=== PATIENT | female | born 2000 | race Caucasian/White ===

== ENCOUNTER 2019-11-09 15:03 | Inpatient (IN) | payer OTHER ==
[2019-11-10] MEDS ORDERED: RINGERS SOLUTION,LACTATED 1,000 ML IV ONE (20:06)
[2019-11-10] MEDS ORDERED: RINGERS SOLUTION,LACTATED 1,000 ML IV PRN (20:06)
[2019-11-10] MEDS ORDERED: DINOPROSTONE 10 MG VAGINAL INSERT.SR ONE (21:04)
--- NOTE | 2019-11-10 21:04 | Admission Physical ---
Datetime Report Generated by CPN: 11/10/2019 21:03 CURRENT ADMISSION Chief Complaint: Scheduled Induction of Labor Indication for Induction: Postterm Admit Impression : Term, Intrauterine ; No Active Labor; Intact Membranes; Induction of Labor Admit Plan: Admit to Unit; Initiate Labor Induction Protocol ALLERGIES Medication Allergies: Yes Medication Allergies: morphine/Anaphylaxis (11/10/2019); codeine/Anaphylaxis (11/10/2019) Latex: No Latex Allergies OBSTETRICAL HISTORY EDC: 11/01/2019 00:00 : 1 Para: 0 Term: 0 : 0 SAB: 0 IAB: 0 Ectopic: 0 Livin Cesareans: 0 VBACs: 0 Multiple Births: 0 Gestational Diabetes: No Rh Sensitization: No Incompetent Cervix: No VITA: No Infertility: No ART Treatment: No Uterine Anomaly: No IUGR: No Hx Previous C/S: No Macrosomia: No Hx Loss/Stillborn: No PIH: No Hx : No Placenta Previa/Abruption: No Depression/PP Depression: No PTL/PROM: No Post Hemorrhage: No SEE RECORDS Cigarettes: Current Some Day Smoker. [id number] MEDICAL HISTORY Diabetes: No Blood Transfusion: No Pulmonary Disease (Asthma, TB): No Breast Disease: No Hypertension: No Manager Relocation Surgery: No Heart Disease: No Hosp/Surgery: Yes Autoimmune Disorder: No Anesthetic Complications: No Kidney Disease: No Abnormal Pap Smear: No Neuro/Epilepsy: No Psychiatric Disorders: No Other Medical Diseases: No Hepatitis/Liver Disease: No Significant Family History: No Varicosities/Phlebitis: No Trauma/Violence : No Thyroid Dysfunction: No Medical History Comments: Ovarian Teratoma at age 3 INFECTIOUS HISTORY Gonorrhea: No Genital Herpes: No Chlamydia: No Tuberculosis: No Syphilis: No Hepatitis: No HIV/AIDS Exposure: No Rash or Viral Illness: No HPV: No Infectious History Comments: Oral HSV, 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 PHYSICAL EXAM General: Normal HEENT: Normal Neurologic: Normal Thyroid: Deferred Heart: Normal Lungs: Normal Breast: Deferred Back: Normal Abdomen: Normal Genitourinary Exam: Normal Extremities: Normal DTRs: Normal Pelvic Type: Adequate Vital Signs: Reviewed VAGINAL EXAM Dilatation: 2 Effacement: 80 Station: -2 Contraction Comments: irreg MEMBRANES Membranes: Intact FETUS A EGA: 41.2 Monitoring: External US FHR- Baseline: 145 Variability: Moderate 6-25bpm Accelerations: 15X15 Decelerations: None FHR Category: Category I Presentation: Vertex Admit Comment: 19yo at 41+2ega presents for scheduled IOL. SAVANAH / by LMP and c/w 1st trimester US. 56# weight gain in . 1hr GTT passed. H/o ovarian teratoma at age 3yo. 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 No oral prodrome or lesions currently. Pt denies vaginal prodrome or lesions. SSE negative for lesions. TIters done for Nursery. GBS positive - PCN for GBS prophy. EFW 9#4oz on 11/08. Admit and IOL with cervidil. Anticipate . INFORMED CONSENT Informed Consent Obtained: Vaginal Delivery; Induction of Labor; Risks, Benefits and Alternatives Discussed Signature: with User ID: [email or web address]
[2019-11-10 21:06] LABS: ABSOLUTE LYMPHOCYTES (AUTO) 1.7 10^3/uL (0.5-4.7); ABSOLUTE MONOCYTES (AUTO) 0.5 10^3/uL (0.1-1.4); ABSOLUTE NEUT (AUTO) 7.8 10^3/uL (1.7-8.2); BASOPHILS % (AUTO) 0.3 % (0-2); EOSINOPHILS % (AUTO) 0.1 % (0-6); HEMATOCRIT 35.7 % (36.0-47.0); HEMOGLOBIN 12.3 g/dL (12.0-15.5); LYMPHOCYTES % (AUTO) 16.9 % (13-45); MEAN CORPUSCULAR HEMOGLOBIN 31.9 pg (27.0-33.4); MEAN CORPUSCULAR HGB CONC 34.5 g/dL (32.0-36.0); MEAN CORPUSCULAR VOLUME 93 fl (80-97); MONOCYTES % (AUTO) 4.9 % (3-13); PLATELET COUNT 114 10^3/uL (150-450); RED BLOOD COUNT 3.86 10^6/uL (3.72-5.28); RED CELL DISTRIBUTION WIDTH 13.9 % (11.5-14.0); SEGMENTED NEUTROPHILS % (AUTO) 77.8 % (42-78); TOTAL CELLS COUNTED % (AUTO) 100 %; WHITE BLOOD COUNT 10.1 10^3/uL (4.0-10.5)
[2019-11-10 21:12] LABS: APPEARANCE,URINE CLEAR; BILIRUBIN,URINE NEGATIVE (NEGATIVE); COLOR,URINE YELLOW; GLUCOSE, URINE NEGATIVE (NEGATIVE); KETONES,URINE NEGATIVE (NEGATIVE); LEUKOCYTE ESTERASE,URINE NEGATIVE (NEGATIVE); NITRITE,URINE NEGATIVE (NEGATIVE); PROTEIN,URINE 30 mg/dL (NEGATIVE); URINE SPECIFIC GRAVITY 1.004; UROBILINOGEN,URINE NEGATIVE mg/dL (<2.0)
[2019-11-10 21:29] LABS: URINE AMPHETAMINES SCREEN NEGATIVE; URINE BARBITURATES SCREEN NEGATIVE; URINE BENZODIAZEPINES SCREEN NEGATIVE; URINE COCAINE SCREEN NEGATIVE; URINE MARIJUANA (THC) SCREEN NEGATIVE; URINE METHADONE SCREEN NEGATIVE; URINE PHENCYCLIDINE SCREEN NEGATIVE
[2019-11-10] MEDS ORDERED: PENICILLIN G POTASSIUM 5,000,000 UNIT in DEXTROSE 5%-WATER 100 ML IV ONE (22:00)
[2019-11-10 22:02] LABS: ALBUMIN 3.1 g/dL (3.5-5.0); ALKALINE PHOSPHATASE 119 U/L (38-126); ANION GAP 6 (5-19); ASPARTATE AMINO TRANSFERASE 36 U/L (14-36); BILIRUBIN,TOTAL 0.3 mg/dL (0.2-1.3); BLOOD UREA NITROGEN 10 mg/dL (7-20); CALCIUM 9.5 mg/dL (8.4-10.2); CARBON DIOXIDE 21 mmol/L (22-30); CHLORIDE 105 mmol/L (98-107); GLUCOSE 115 mg/dL (75-110); POTASSIUM 4.1 mmol/L (3.6-5.0); TOTAL PROTEIN 6.1 g/dL (6.3-8.2); URIC ACID 5.8 mg/dL (2.5-6.2)
[2019-11-10 22:22] LABS: UR PRO/CREAT RATIO RESULT 0.8 mg/mg (0.0-0.2); URINE CREATININE 46.2 mg/dL (16-327); URINE PROTEIN 38.8 mg/dL (<12)
[2019-11-11] MEDS: PENICILLIN G POTASSIUM 2,500,000 UNIT in DEXTROSE 5%-WATER 50 ML IV SCH ×4 (03:56→17:36)
[2019-11-11] MEDS ORDERED: OXYTOCIN/0.9 % SODIUM CHLORIDE 30 UNIT/500 ML RTUINJ IV PRN ×3 (07:43→17:24)
--- NOTE | 2019-11-11 08:08 | L&D Progress Notes ---
PROGRESS NOTES Datetime Report Generated by CPN: 11/11/2019 08:08 PROGRESS NOTE Impression: Normal Progression of Labor Procedures: Sterile Vag Exam Plan: Continue Present Management; Induction; Cervical Ripening Informed Consent Obtained: Vaginal Delivery; Induction of Labor; Risks, Benefits and Alternatives Discussed Vital Signs : Reviewed Comment: cervidil in since last night at 2100. 1/60/-3 then. Now cvx 3.5/75/-2. She declines AROM. Reviewed if no Active labor and SROM by noon that would need to break water. She is agreeable to this. Pitocin started. Plan reviewed. She verbalized understanding. VAGINAL EXAM Dilatation: 2 Effacement: 80 Station: -2 Contractions: irreg LAST VAGINAL EXAM-NURSING Nursing Exam Dilitation: 3.5 Nursing Exam Effacement: 75 Nursing Exam Station: -2 MEMBRANES Membranes: Intact FETUS A FHR - Baseline: 125 Monitoring: External US Variability: Moderate 6-25bpm Accelerations: 15X15 Decelerations: None FHR Category: Category I Presentation: Vertex SIGNATURE SIGNATURE: [id number] Signature: with User ID: [email or web address]
[2019-11-11] MEDS ORDERED: OXYTOCIN 10 UNIT/ML VIAL ONE (09:07)
[2019-11-11] MEDS ORDERED: OXYTOCIN/0.9 % SODIUM CHLORIDE 30 UNIT/500 ML RTUINJ ONE (09:08)
[2019-11-11] MEDS ORDERED: MISOPROSTOL 0.2 MG TABLET ONE (09:08)
[2019-11-11] MEDS ORDERED: LIDOCAINE 1% INJ-PF (10 MG/ML) 30 ML SDV ONE (09:08)
[2019-11-11] MEDS ORDERED: PENICILLIN G-K 5 MILLION UNIT VIAL ONE (09:09)
[2019-11-11] MEDS ORDERED: ONDANSETRON HCL INJ/PF 4 MG/2 ML SDV IV PRN (12:04)
--- NOTE | 2019-11-11 12:08 | L&D Progress Notes ---
PROGRESS NOTES Datetime Report Generated by CPN: 11/11/2019 12:08 PROGRESS NOTE Impression: Normal Progression of Labor; Reassuring Heart Rate Procedures: Artificial ROM; Sterile Vag Exam Plan: Continue Present Management; Induction; Antibiotic Therapy Plan Other: Pt may have an epidural Informed Consent Obtained: Vaginal Delivery; Induction of Labor; Risks, Benefits and Alternatives Discussed Vital Signs : Reviewed; Within Normal Limits Comment: IOL continues, PCN several doses infused for GBS+. Pitocin infusing. VE /-1, vtx. Pt considering an epidural. Position changes encouraged. Attending MD is Dr Coburn VAGINAL EXAM Dilatation: 2 Effacement: 80 Station: -2 Contractions: irreg LAST VAGINAL EXAM-NURSING Nursing Exam Dilitation: 5.0 Nursing Exam Effacement: 90 Nursing Exam Station: -1 MEMBRANES Membranes: Ruptured Amniotic Fluid Color: Clear FETUS A FHR - Baseline: 130 Monitoring: External US Variability: Moderate 6-25bpm Accelerations: 15X15 Decelerations: None FHR Category: Category I Presentation: Vertex SIGNATURE SIGNATURE: [id number] Assignment: Price Coburn MD Signature: with User ID: [email or web address] : with User ID: [email or web address]
[2019-11-11] MEDS ORDERED: EPHEDRINE SULFATE INJ 50 MG/1 ML AMPULE ONE (13:38)
[2019-11-11] MEDS ORDERED: FENTANYL/BUPIVACAINE/NS/PF 300 MCG/150 ML RTUINJ EPI ONE (13:38)
[2019-11-11] MEDS ORDERED: BUPIVACAINE HCL 0.25 % INJ/PF (2.5 MG/1 ML) 30 ML VIAL ONE (13:39)
--- NOTE | 2019-11-11 15:19 | L&D Progress Notes ---
PROGRESS NOTES Datetime Report Generated by CPN: 11/11/2019 15:19 PROGRESS NOTE Impression: Normal Progression of Labor Procedures: Sterile Vag Exam Plan: Continue Present Management; Anticipate Vaginal Delivery Plan Other: Pt may have an epidural Informed Consent Obtained: Vaginal Delivery; Induction of Labor; Risks, Benefits and Alternatives Discussed Vital Signs : Reviewed; Within Normal Limits Comment: Pt now has an epidural. Comfortable, VE per RN 8.5/90/0. Position changes encouraged. Will tx for GBS + until delivery VAGINAL EXAM Dilatation: 2 Effacement: 80 Station: -2 Contractions: irreg LAST VAGINAL EXAM-NURSING Nursing Exam Dilitation: 8.5 Nursing Exam Effacement: 90 Nursing Exam Station: 0 MEMBRANES Membranes: Ruptured Amniotic Fluid Color: Clear FETUS A FHR - Baseline: 130 Monitoring: External US Variability: Moderate 6-25bpm Accelerations: 15X15 Decelerations: None FHR Category: Category I Presentation: Vertex SIGNATURE SIGNATURE: [id number] Assignment: Price Coburn MD Signature: with User ID: [email or web address] : with User ID: [email or web address]
[2019-11-11] MEDS ORDERED: DIBUCAINE 1% OINTMENT 28 GM TP PRN (17:24)
[2019-11-11] MEDS ORDERED: NA PHOS,M-B/NA PHOS,DI-BA (ADULT) 133 ML ENEMA PR PRN (17:24)
[2019-11-11] MEDS ORDERED: PSEUDOEPHEDRINE HCL 30 MG TABLET PO PRN (17:24)
[2019-11-11] MEDS ORDERED: DIPH/PERTUSS(ACELL)/TETANUS VAC/PF 0.5 ML SYR (>=10YO) IM PRN (17:24)
[2019-11-11] MEDS ORDERED: MEASLES,MUMPS&RUBELLA VACC/PF 0.5 ML VIAL SUBCUT PRN (17:24)
[2019-11-11] MEDS ORDERED: MAGNESIUM HYDROXIDE SUSP 30 ML UDCUP PO PRN (17:24)
[2019-11-11] MEDS ORDERED: ACETAMINOPHEN 650 MG SUPP.RECT PR PRN (17:24)
[2019-11-11] MEDS ORDERED: DIPHENHYDRAMINE HCL 25 MG CAPSULE PO PRN (17:24)
[2019-11-11] MEDS ORDERED: ZOLPIDEM TARTRATE 5 MG TABLET PO PRN (17:24)
[2019-11-11] MEDS ORDERED: BENZOCAINE/MENTHOL AEROSOL SPRAY 56 ML TOP PRN (17:24)
[2019-11-11] MEDS ORDERED: PROMETHAZINE HCL 25 MG SUPP.RECT PR PRN (17:24)
[2019-11-11] MEDS ORDERED: GLYCERIN/WITCH HAZEL LEAF 1 EACH MED..WIPE TP PRN (17:24)
[2019-11-11] MEDS ORDERED: PROMETHAZINE HCL INJ 25 MG/1 ML VIAL IV PRN (17:24)
[2019-11-11] MEDS ORDERED: PROMETHAZINE HCL 25 MG TABLET PO PRN (17:24)
[2019-11-11] MEDS ORDERED: ACETAMINOPHEN WITH CODEINE #3 TABLET PO PRN (17:24)
[2019-11-11] MEDS ORDERED: ACYCLOVIR PO SCH (18:00)
--- NOTE | 2019-11-11 19:59 | Delivery Summary ---
Del Sum A-C Datetime Report Generated by CPN: 11/11/2019 19:59 DELIVERY PERSONNEL DELIVERY PERSONNEL: [id number] Delivery Doctor:: Price Coburn MD Labor and Delivery Nurse:: Payton Yadav RNreceivable executive Nurse:: SELAM Henderson Nursery Nurse:: Shannan Perry Nursery Nurse:: marilia Refueler/BROKERAGE BRANCH MANAGER: Gardenia Wadsworth CNA II Refueler/BROKERAGE BRANCH MANAGER: Karla Rock, WIRE WHEELER MATERNAL INFORMATION Delivery Anesthesia: Epidural Medications After Delivery: Pitocin 30 Units in 500ml NS/D5W Delivery QBL: 300 Maternal Complications: None LABOR SUMMARY EDC: 11/01/2019 00:00 No. Babies in Womb: 1 Attempted: No Labor Anesthesia: Epidural LABOR INFORMATION Reason for Induction: Post Dates Onset of Labor: 11/11/2019 12:00 Complete Dilatation: 11/11/2019 16:05 Cervical Ripening Agents: Cervidil Oxytocin: Induction Group B Beta Strep: Positive Antibiotics # of Doses: 4 Antibiotics Time of Last Dose: 1340 Name of Antibiotic Given: PCN Steroids Given: None Reason Steroids Not Administered: Not Applicable MEMBRANES Membranes Rupture Method: Artificial Rupture of Membranes: 11/11/2019 12:01 Length of Rupture (hr): 5.02 Amniotic Fluid Color: Clear Amniotic Fluid Amount: Small Amniotic Fluid Odor: Normal STAGES OF LABOR Stage 1 hr: 4 Stage 1 min: 5 Stage 2 hr: 0 Stage 2 min: 57 Stage 3 hr: 0 Stage 3 min: 6 Total Time in Labor hr: 5 Total Time in Labor min: 8 VAGINAL DELIVERY Episiotomy: None Laceration #1: Perineal; Vaginal Laceration Extension #1: Third Degree, IIIa (Less than 50 percent ext anal sphincter thickness torn) Laceration Repair: Yes Laceration Repair Note: sphincter repaired with 3 layers and the vaginal tear with 20 vicryl CSECTION DELIVERY Primary Indication: N/A Secondary Indication: N/A CSection Incidence: N/A Labor: N/A Elective: N/A CSection Incision: N/A BABY A INFORMATION Delivery Date/Time: 11/11/2019 17:02 Method of Delivery: Vaginal Nurse Controlled Delivery: No Born in Route : No : N/A Forceps: N/A Vacuum Extraction: N/A Shoulder Dystocia : No PRESENTATION/POSITION BABY A Presentation: Cephalic Cephalic Presentation: Vertex Vertex Position: Left Occipital Anterior Breech Presentation: N/A PLACENTA INFORMATION BABY A Placenta Delivery Time : 11/11/2019 17:08 Placenta Method of Delivery: Spontaneous Placenta Status: Delivered SCORES BABY A Heart Rate 1 min: >100 bpm Resp Effort 1 min: Good Cry Reflex Irritability 1 min: Cough or Sneeze or Pulls Away Muscle Tone 1 min: Active Motion Color 1 min: Body [place], Extremities Blue Resuscitation Effort 1 min: Tactile Stimulation SCORE 1 MIN: 9 Heart Rate 5 min: >100 bpm Resp Effort 5 min: Good Cry Reflex Irritability 5 min: Cough or Sneeze or Pulls Away Muscle Tone 5 min: Active Motion Color 5 min: Completely [place] Resuscitation Effort 5 min: Tactile Stimulation SCORE 5 MIN: 10 INFORMATION BABY A Gestational Age at Delivery: 41.3 Gestational Status: Late Term- 41- 41.6 Weeks Infant Outcome : Liveborn Infant Condition : Stable Sex: Male IDENTIFICATION BABY A Infant Verification Date/Time: 11/11/2019 17:26 ID Band Number: [id number] Mother's Name Verified: Yes RN Verifying Infant: RArnel Yadav, RN/ S. Hou, RN WEIGHT/LENGTH BABY A Infant Birthweight (gm): 4104 Infant Weight (lb): 9 Infant Weight (oz): 1 Length (in): 21.00 Length (cm): 53.34 CORD INFORMATION BABY A No. Cord Vessels: 3 Nuchal Cord : N/A Cord Blood Taken: Yes-For Eval (Mom's Blood Type - or O+) Infant Suction: None ASSESSMENT BABY A Complications: None Physical Findings at Delivery: Within Normal Limits Infant Respirations: Appears Normal Skin to Skin: Yes Overlock Sewing Machine Operator/ALS Called : No Care By: D. Bigge, RNC Transferred To: Remains with Mother BABY B INFORMATION : N/A SIGNATURES Signature: with User ID: [email or web address]
[2019-11-11] MEDS: IBUPROFEN 800 MG TABLET PO SCH (22:45)
[2019-11-12] MEDS: FERROUS SULFATE 325 MG TABLET PO SCH ×3 (06:08→17:22)
[2019-11-12] MEDS: DOCUSATE SODIUM 100 MG CAPSULE PO SCH ×3 (06:08→17:22)
[2019-11-12] MEDS: FAMOTIDINE 20 MG TABLET PO SCH ×3 (06:09→21:11)
[2019-11-12 07:47] LABS: HEMATOCRIT 27.7 % (36.0-47.0); MEAN CORPUSCULAR HEMOGLOBIN 32.3 pg (27.0-33.4); MEAN CORPUSCULAR HGB CONC 34.3 g/dL (32.0-36.0); MEAN CORPUSCULAR VOLUME 94 fl (80-97); RED BLOOD COUNT 2.95 10^6/uL (3.72-5.28); RED CELL DISTRIBUTION WIDTH 14.4 % (11.5-14.0); WHITE BLOOD COUNT 10.7 10^3/uL (4.0-10.5)
[2019-11-12 08:11] LABS: HEMOGLOBIN 9.5 g/dL (12.0-15.5)
[2019-11-12 08:12] LABS: PLATELET COUNT 87 10^3/uL (150-450)
[2019-11-12] MEDS: IBUPROFEN 800 MG TABLET PO SCH ×3 (08:30→22:30)
--- NOTE | 2019-11-12 09:31 | PDOC PROGRESS REPORT ---
Subjective-OB Progress Note for:: 11/12/19 Subjective: Doing well, no c/o, , voiding, walking, scant bleeding Physical Exam (OB) Vital Signs: Temp Pulse Resp BP Pulse Ox 98.6 F 77 18 151/82 H 100 11/12/19 07:19 11/12/19 07:19 11/12/19 07:19 11/12/19 07:19 11/12/19 07:19 Intake & Output 11/11/19 11/12/19 11/13/19 06:59 06:59 06:59 Weight 86.4 kg - PIH/Pre-Eclampsia DTR's: 2 + Clonus: Negative Headache: Absent Epigastric Pain: No Visual Changes: No - Lochia Lochia Amount: Scant < 10 ml Lochia Color: Rubra/Red - Abdomen Description: Soft, Round Fundal Description: Firm, Midline Fundal Height: u/u - u/2 Objective-Diagnostic Laboratory: 11/12/19 06:59 11/10/19 20:29 11/12/19 06:59 WBC 10.7 H RBC 2.95 L Hgb 9.5 L D Hct 27.7 L MCV 94 MCH 32.3 MCHC 34.3 RDW 14.4 H Plt Count 87 L Assessment and Plan(PN) - Assessment and Plan (1) Pre-eclampsia Qualifiers: Trimester: third trimester Qualified Code(s): O14.93 - Unspecified pre- eclampsia, third trimester Is this a current diagnosis for this admission?: Yes (2) Gestational thrombocytopenia Qualifiers: Trimester: unspecified trimester Qualified Code(s): O99.119 - Other diseas es of the blood and blood-forming organs and certain disorders involving the immune mechanism complicating , unspecified trimester; D69.6 - Thrombocytopenia, unspecified Is this a current diagnosis for this admission?: Yes (3) Elective induction of labor planned Is this a current diagnosis for this admission?: Yes (4) Post-term , 40-42 weeks of gestation Is this a current diagnosis for this admission?: Yes (5) Carrier of group B Streptococcus Is this a current diagnosis for this admission?: Yes - Time Spent with Patient Time with patient: Less than 15 minutes Medications reviewed and adjusted accordingly: Yes - Disposition Anticipated Discharge: Home Within: within 24 hours
[2019-11-12] MEDS ORDERED: ACETAMINOPHEN 325 MG TABLET PO PRN (09:47)
[2019-11-12] MEDS ORDERED: ACETAMINOPHEN WITH CODEINE #3 TABLET PO PRN (09:47)
--- NOTE | 2019-11-12 09:49 | PDOC PROGRESS REPORT ---
Subjective-OB Progress Note for:: 11/12/19 Subjective: Doing well, no c/o, voiding, mod bleeding Physical Exam (OB) Vital Signs: Temp Pulse Resp BP Pulse Ox 98.6 F 77 18 151/82 H 100 11/12/19 07:19 11/12/19 07:19 11/12/19 07:19 11/12/19 07:19 11/12/19 07:19 Intake & Output 11/11/19 11/12/19 11/13/19 06:59 06:59 06:59 Weight 86.4 kg - PIH/Pre-Eclampsia DTR's: 2 + Clonus: Negative Headache: Absent Epigastric Pain: No Visual Changes: No - Lochia Lochia Amount: Scant < 10 ml Lochia Color: Rubra/Red - Abdomen Description: Soft, Round Fundal Description: Firm, Midline Fundal Height: u/u - u/2 Objective-Diagnostic Laboratory: 11/12/19 06:59 11/10/19 20:29 11/12/19 06:59 WBC 10.7 H RBC 2.95 L Hgb 9.5 L D Hct 27.7 L MCV 94 MCH 32.3 MCHC 34.3 RDW 14.4 H Plt Count 87 L Assessment and Plan(PN) - Assessment and Plan (1) Pre-eclampsia Qualifiers: Trimester: third trimester Qualified Code(s): O14.93 - Unspecified pre- eclampsia, third trimester Is this a current diagnosis for this admission?: Yes (2) Gestational thrombocytopenia Qualifiers: Trimester: unspecified trimester Qualified Code(s): O99.119 - Other diseases of the blood and blood-forming organs and certain disorders involving the immune mechanism complicating , unspecified trimester; D69.6 - Thrombocytopenia, unspecified Is this a current diagnosis for this admission?: Yes (3) Elective induction of labor planned Is this a current diagnosis for this admission?: Yes (4) Post-term , 40-42 weeks of gestation Is this a current diagnosis for this admission?: Yes (5) Carrier of group B Streptococcus Is this a current diagnosis for this admission?: Yes - Time Spent with Patient Medications reviewed and adjusted accordingly: Yes - Disposition Anticipated Discharge: Home
[2019-11-12] MEDS: ACYCLOVIR 200 MG CAPSULE PO SCH ×2 (10:00→17:20)
[2019-11-12] MEDS: PRENATAL VITAMIN W DHA CAPSULE PO SCH (10:31)
[2019-11-12] MEDS: SENNOSIDES/DOCUSATE 8.6-50 MG 1 EACH TABLET PO SCH (10:31)
[2019-11-12] MEDS ORDERED: ACETAMINOPHEN 325 MG TABLET ONE (21:48)
[2019-11-12] MEDS: ACETAMINOPHEN 325 MG TABLET PO PRN (22:29)
[2019-11-13] MEDS: ACETAMINOPHEN 325 MG TABLET PO PRN (05:40)
[2019-11-13] MEDS: IBUPROFEN 800 MG TABLET PO SCH ×2 (06:00→14:48)
[2019-11-13 08:22] VITALS: BP 128/79
--- NOTE | 2019-11-13 08:58 | PDOC PROGRESS REPORT ---
Subjective-OB Progress Note for:: 11/13/19 Subjective: Doing well, ready to go home, no BM, voiding, eating well, hsb at BS Physical Exam (OB) Vital Signs: Temp Pulse Resp BP Pulse Ox 98.1 F 88 18 128/79 H 100 11/13/19 07:22 11/13/19 08:20 11/13/19 07:22 11/13/19 08:20 11/13/19 08:20 - PIH/Pre-Eclampsia DTR's: 2 + Clonus: Negative Headache: Absent Epigastric Pain: No Visual Changes: No - Lochia Lochia Amount: Scant < 10 ml Lochia Color: Rubra/Red - Abdomen Description: Soft Fundal Description: Firm, Midline Fundal Height: u/u - u/2 Objective-Diagnostic Laboratory: 11/12/19 06:59 11/10/19 20:29 Assessment and Plan(PN) - Assessment and Plan (1) Pre-eclampsia Qualifiers: Trimester: third trimester Qualified Code(s): O14.93 - Unspecified pre- eclampsia, third trimester Is this a current diagnosis for this admission?: Yes (2) Gestational thrombocytopenia Qualifiers: Trimester: unspecified trimester Qualified Code(s): O99.119 - Other di seases of the blood and blood-forming organs and certain disorders involving the immune mechanism complicating , unspecified trimester; D69.6 - Thrombocytopenia, unspecified Is this a current diagnosis for this admission?: Yes (3) Elective induction of labor planned Is this a current diagnosis for this admission?: Yes (4) Post-term , 40-42 weeks of gestation Is this a current diagnosis for this admission?: Yes (5) Carrier of group B Streptococcus Is this a current diagnosis for this admission?: Yes - Time Spent with Patient Time with patient: Less than 15 minutes Medications reviewed and adjusted accordingly: Yes - Disposition Anticipated Discharge: Home Within: within 24 hours
--- NOTE | 2019-11-13 09:07 | PDOC DISCHARGE SUMMARY ---
Impression - Admit/DC Date/PCP Admission Date/Primary Care Provider: 11/10/19 20:06 Discharge Date: 11/13/19 - Discharge Diagnosis (1) Pre-eclampsia Is this a current diagnosis for this admission?: Yes (2) Gestational thrombocytopenia Is this a current diagnosis for this admission?: Yes (3) Elective induction of labor planned Is this a current diagnosis for this admission?: Yes (4) Post-term , 40-42 weeks of gestation Is this a current diagnosis for this admission?: Yes (5) Carrier of group B Streptococcus Is this a current diagnosis for this admission?: Yes - Additional Information Resuscitation Status: Full Code Discharge Diet: As Tolerated, Regular Discharge Activity: Activity As Tolerated, Pelvic Rest Referrals: HILARIO JUNIOR MD [ACTIVE STAFF] - ([facility] 2 weeks) Home Medications: Acyclovir [Acyclovir 400 mg Tablet] 1 tab PO BID 11/10/19 Prenat 115/Iron Fum/Folic/Dss [ 19 Tablet] 1 tab PO DAILY 11/10/19 HPI Gestational Age: 41.3 Reason(s) for Admission: Induction of Labor, Group B Strep Positive Admission Note: post dates Procedures: NST, Ultrasound Intrapartum Procedure(s): Spontaneous Vaginal Delivery Complication(s): Laceration-Vaginal Laceration-Degree: 3rd Hospital Course Hospital Course: routine Results Laboratory Results: WBC 10.7 10^3/uL (4.0-10.5) H 11/12/19 06:59 RBC 2.95 10^6/uL (3.72-5.28) L 11/12/19 06:59 Hgb 9.5 g/dL (12.0-15.5) L D 11/12/19 06:59 Hct 27.7 % (36.0-47.0) L 11/12/19 06:59 MCV 94 fl (80-97) 11/12/19 06:59 MCH 32.3 pg (27.0-33.4) 11/12/19 06:59 MCHC 34.3 g/dL (32.0-36.0) 11/12/19 06:59 RDW 14.4 % (11.5-14.0) H 11/12/19 06:59 Plt Count 87 10^3/uL (150-450) L 11/12/19 06:59 Lymph % (Auto) 16.9 % (13-45) 11/10/19 20: [place] % (Auto) 4.9 % (3-13) 11/10/19 20: Eos % (Auto) 0.1 % (0-6) 11/10/19 20: Baso % (Auto) 0.3 % (0-2) 11/10/19 20: Absolute Neuts (auto) 7.8 10^3/uL (1.7-8.2) 11/10/19 20: Absolute Lymphs (auto) 1.7 10^3/uL (0.5-4.7) 11/10/19: Absolute Monos (auto) 0.5 10^3/uL (0.1-1.4) 11/10/19: Absolute Eos (auto) 0.0 10^3/uL (0.0-0.6) 11/10/19 Absolute Basos (auto) 0.0 10^3/uL (0.0-0.2) 11/10/19 20: Seg Neutrophils % 77.8 % (42-78) 11/10/19 20: Sodium 131.6 mmol/L (137-145) L 11/10/19: Potassium 4.1 mmol/L (3.6-5.0) 11/10/19 20: Chloride 105 mmol/L (98-107) 11/10/19: Carbon Dioxide 21 mmol/L (22-30) L 11/10/19: Anion Gap 6 (5-19) 11/10/19: BUN 10 mg/dL (7-20) 11/10/19: Creatinine 0.76 mg/dL (0.52-1.25) 11/10/19 20: Est GFR ( Amer) > 60 (>60) 11/10/19 20: Est GFR (MDRD) Non-Af > 60 (>60) 11/10/19 20: Glucose 115 mg/dL (75-110) H 11/10/19 20: Uric Acid 5.8 mg/dL (2.5-6.2) 11/10/19: Calcium 9.5 mg/dL (8.4-10.2) 11/10/19 20: Total Bilirubin 0.3 mg/dL (0.2-1.3) 11/10/19 20: Direct Bilirubin 0.0 mg/dL (0.0-0.4) 11/10/19 20: Neonat Total Bilirubin Not Reportable 11/10/19 20:29 Neonat Direct Bilirubin Not Reportable 11/10/19 20: Neonat Indirect Bili Not Reportable 11/10/19 20: AST 36 U/L (14-36) 11/10/19 20: ALT 21 U/L (<35) 11/10/19 20: Alkaline Phosphatase 119 U/L (38-126) 11/10/19 20: Lactate Dehydrogenase 209 U/L (120-246) 11/10/19 20: Total Protein 6.1 g/dL (6.3-8.2) L 11/10/19 20: Albumin 3.1 g/dL (3.5-5.0) L 11/10/19 20: Urine Color YELLOW 11/10/19 20:20 Urine Appearance CLEAR 11/10/19 20:20 Urine pH 7.0 (5.0-9.0) 11/10/19 20:20 Ur Specific [place] 1.004 11/10/19 20:20 Urine Protein 30 mg/dL (NEGATIVE) H 11/10/19 20:20 Urine Glucose (UA) NEGATIVE mg/dL (NEGATIVE) 11/10/19 20:20 Urine Ketones NEGATIVE mg/dL (NEGATIVE) 11/10/19 20:20 Urine Blood NEGATIVE (NEGATIVE) 11/10/19 20:20 Urine Nitrite NEGATIVE (NEGATIVE) 11/10/19 20:20 Urine Bilirubin NEGATIVE (NEGATIVE) 11/10/19 20:20 Urine Urobilinogen NEGATIVE mg/dL (<2.0) 11/10/19 20:20 Ur Leukocyte Esterase NEGATIVE (NEGATIVE) 11/10/19 20:20 Urine WBC (Auto) 1 /HPF 11/10/19 20:20 Urine RBC (Auto) 0 /HPF 11/10/19 20:20 Urine Bacteria (Auto) 1+ /HPF 11/10/19 20:20 Squamous Epi Cells Auto 5 /HPF 11/10/19 20:20 Urine Mucus (Auto) RARE /LPF 11/10/19 20:20 Urine Creatinine 46.2 mg/dL (16-327) 11/10/19 20:20 Protein/Creatinin Ratio 0.8 mg/mg (0.0-0.2) H 11/10/19 20:20 Urine Total Protein 38.8 mg/dL (<12) H 11/10/19 20:20 Urine Ascorbic Acid NEGATIVE (NEGATIVE) 11/10/19 20:20 Urine Opiates Screen NEGATIVE 11/10/19 20:20 Urine Methadone Screen NEGATIVE 11/10/19 20:20 Ur Barbiturates Screen NEGATIVE 11/10/19 20:20 Ur Phencyclidine Scrn NEGATIVE 11/10/19 20:20 Ur Amphetamines Screen NEGATIVE 11/10/19 20:20 U Benzodiazepines Scrn NEGATIVE 11/10/19 20:20 Urine Cocaine Screen NEGATIVE 11/10/19 20:20 U Marijuana (THC) Screen NEGATIVE 11/10/19 20:20 RPR NONREACTIVE (NONREACTIVE) 11/10/19 20:29 HSV I IgG Ab 35.10 index (0.00-0.90) H 11/10/19 20:29 HSV II Specific Ab < 0.91 index (0.00-0.90) 11/10/19 20:29 Blood Type O POSITIVE 11/10/19 20: Antibody Screen NEGATIVE 11/10/19 20:29 Plan Health Concerns: 3rd degree, stool softners Plan of Treatment: d/c home, rev S&S to report, nothing in rectum, increase fiber and stool softner Goals: no complications Time Spent: Less than 30 Minutes
[2019-11-13] MEDS: SENNOSIDES/DOCUSATE 8.6-50 MG 1 EACH TABLET PO SCH (09:52)
[2019-11-13] MEDS: DOCUSATE SODIUM 100 MG CAPSULE PO SCH (09:52)
[2019-11-13] MEDS: FAMOTIDINE 20 MG TABLET PO SCH (09:52)
[2019-11-13] MEDS: FERROUS SULFATE 325 MG TABLET PO SCH (09:52)
[2019-11-13] MEDS: PRENATAL VITAMIN W DHA CAPSULE PO SCH (09:53)
[2019-11-13] MEDS: ACYCLOVIR 200 MG CAPSULE PO SCH (09:53)
== END 2019-11-13 15:19 | disposition home or self-care (01) | DRG 768 ==
LOC: LR 11-10 20:06 → 2S 11-11 20:25
PROVIDERS: ADMIT Student in an Organized Health Care Education/Training Program; ATTEND Obstetrics & Gynecology Gynecology
PROC: 10E0XZZ Delivery of Products of Conception, External Approach (ICD-10-PCS; principal; 2019-11-11)
PROC: 0DQR0ZZ Repair Anal Sphincter, Open Approach (ICD-10-PCS; 2019-11-11)
DX: O48.0 Post-term pregnancy (principal); Z37.0 Single live birth; O98.52 Other viral diseases complicating childbirth; B00.89 Other herpesviral infection; O70.21 Third degree perineal laceration during delivery, IIIa; O99.12 Other diseases of the blood and blood-forming organs and certain disorders involving the immune mechanism complicating childbirth; O99.824 Streptococcus B carrier state complicating childbirth; O99.334 Smoking (tobacco) complicating childbirth; F17.210 Nicotine dependence, cigarettes, uncomplicated; Z3A.41 41 weeks gestation of pregnancy; O14.94 Unspecified pre-eclampsia, complicating childbirth; D69.6 Thrombocytopenia, unspecified
CPT/HCPCS: 1967; 36415; 80053; 80307; 81001; 82570; 83615; 84156; 84550; 85025; 85027; 86592; 86695; 86696; 86850; 86900; 86901; 94760; J2540; J2590; J3010; J3490; J7060